=== PATIENT | female | born 1955 | race Asian ===

== ENCOUNTER 2019-08-20 18:25 | Emergency (ER) | payer MEDICAID ==
[~2019-08-20] VITALS: Ht 162.6 cm; Wt 50.0 kg
[2019-08-20] MEDS ORDERED: AMLO10TA7 PO (18:31)
[2019-08-20] MEDS ORDERED: METO5TAB95 PO (18:31)
[2019-08-20] MEDS ORDERED: LEVO100 PO (18:31)
[2019-08-20] MEDS ORDERED: ESCI5SOL2 PO (18:31)
[2019-08-20] MEDS ORDERED: EMPA1TAB7 PO (18:31)
[2019-08-20] MEDS ORDERED: LOSA25TA71 PO (18:31)
[2019-08-20] MEDS ORDERED: METO25XL PO (18:31)
[2019-08-20] MEDS ORDERED: PANT-31 PO (18:31)
[2019-08-20] MEDS ORDERED: ATOR20TA86 PO (18:31)
[2019-08-20] MEDS ORDERED: EMPA10TA PO (18:31)
[2019-08-20 19:45] LABS: GLUCOSE,POINT OF CARE 117 MG/DL (70-110)
[2019-08-20] MEDS ORDERED: ONDANSETRON HCL 4 MG/2 ML VIAL IVP ONE (19:45)
[2019-08-20] MEDS ORDERED: KETOROLAC TROMETHAMINE 30 MG/ML VIAL IVP ONE (19:45)
[2019-08-20] MEDS ORDERED: SODIUM CHLORIDE 0.9% 1,000 ML IV ONE (20:30)
[2019-08-20 20:49] LABS: BASOPHILS % (AUTO) 0.6 % (0.0-2.0); EOSINOPHILS % (AUTO) 1.4 % (1.0-6.0); HEMATOCRIT 32.5 % (36-46); HEMOGLOBIN 10.8 g/dL (12.0-16.0); LYMPHOCYTES # (AUTO) 2.1 K/uL (1.0-4.8); LYMPHOCYTES % (AUTO) 27.8 % (22.0-44.0); MEAN CORPUSCULAR HEMOGLOBIN 28.7 pg (26.0-34.0); MEAN CORPUSCULAR HGB CONC 33.2 G/dL (31.0-37.0); MEAN CORPUSCULAR VOLUME 86 fL (80-100); MONOCYTES # (AUTO) 0.4 K/uL (0.1-1.0); MONOCYTES % (AUTO) 5.3 % (2.0-9.0); NEUTROPHILS # (AUTO) 4.9 K/uL (1.8-7.7); NEUTROPHILS % (AUTO) 64.9 % (40.0-70.0); PLATELET COUNT (AUTO) 190 K/uL (150-450); RED BLOOD CELL COUNT(AUTO) 3.76 MIL/uL (4.00-5.20); RED CELL DISTRIBUTION WIDTH 14.6 % (11.5-14.5)
[2019-08-20 20:59] LABS: CREATININE 1.72 mg/dL (0.60-1.30); POTASSIUM 3.6 mmol/L (3.5-5.1)
[2019-08-20 21:14] LABS: ALBUMIN 4.4 g/dL (3.4-5.0); BILIRUBIN,TOTAL 0.6 mg/dL (0.1-1.0); FREE T4 (FREE THYROXINE) 1.66 ng/dL (0.76-1.46); THYROID STIMULATING HORMONE 0.26 uIU/mL (0.36-3.74)
[2019-08-20 22:13] LABS: APPEARANCE,URINE CLEAR (CLEAR); BILIRUBIN,URINE NEGATIVE (NEGATIVE); GLUCOSE, URINE (UA) 500 mg/dL (NEGATIVE); KETONES,URINE NEGATIVE (NEGATIVE); LEUKOCYTE ESTERASE ,URINE NEGATIVE (NEGATIVE); NITRATE,URINE NEGATIVE (NEGATIVE); OCCULT BLOOD,URINE NEGATIVE (NEGATIVE); PH,URINE 5.5 (5.0-8.0); PROTEIN,URINE NEGATIVE (NEGATIVE); UROBILINOGEN,URINE 0.2 mg/dL (<=1.0)
[2019-08-20 22:22] LABS: BACTERIA,URINE Few /HPF (None Seen); SQUAMOUS EPITHELIAL CELL,UR Moderate /LPF (None Seen)
[2019-08-20 23:43] VITALS: BP 108/80
== END 2019-08-20 23:43 | disposition home or self-care (01) ==
LOC: EMS 18:26
DX: N19 Unspecified kidney failure (principal); G89.29 Other chronic pain; R10.9 Unspecified abdominal pain; F32.9 Major depressive disorder, single episode, unspecified; E11.9 Type 2 diabetes mellitus without complications; I10 Essential (primary) hypertension; Z79.899 Other long term (current) drug therapy
CPT/HCPCS: 36415; 76700; 80053; 81001; 82550; 82962; 83690; 83880; 84439; 84443; 84484; 85025; 93005; 96374; 96375; 99285; J1885; J2405; J7030